=== PATIENT | male | born 1930 | race Caucasian/White ===

== ENCOUNTER 2017-08-19 18:06 | Emergency (ER) | payer MEDICARE, BC ==
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
[2017-08-19 18:58] LABS: Appearance,Urine Clear (Clear); Bilirubin,Urine Negative (Negative); Blood,Urine Negative (Negative); Color,Urine Yellow; Glucose,Urine (UA) Negative (Negative); Ketones,Urine Negative (Negative); Leukocyte Esterase,Urine Negative (Negative); Nitrite,Urine Negative (Negative); PH, Urine 6.5 (5.0-8.0); Protein,Urine Negative (Negative); Specific Gravity,Urine 1.015 (1.001-1.035); Urobilinogen,Urine <2.0 mg/dL (<2.0)
[2017-08-19 18:59] LABS: Basophils # (A) 0.1 k/uL (0-0.2); Basophils % (A) 1 %; Eosinophils # (A) 0.1 k/uL (0-0.7); Eosinophils % (A) 2 %; HCT 36.8 % (39.0-53.0); HGB 12.1 gm/dL (13.0-17.5); Lymphocytes # (A) 1.1 k/uL (1.0-4.8); Lymphocytes % (A) 20 %; MCH 30.6 pg (25.0-35.0); MCHC 32.9 g/dL (31.0-37.0); MCV 93.1 fL (80.0-100.0); Mean Platelet Volume 8.3; Monocytes # (A) 1.5 k/uL (0-1.0); Monocytes % (A) 27 %; Neutrophils # (A) 2.7 k/uL (1.3-7.7); Neutrophils % (A) 48 %; Platelet Count 139 k/uL (150-450); RBC 3.96 m/uL (4.30-5.90); RDW 14.3 % (11.5-15.5); WBC 5.5 k/uL (3.8-10.6)
[2017-08-19 19:11] LABS: Albumin 3.5 g/dL (3.5-5.0); Calcium 8.8 mg/dL (8.4-10.2); Potassium 4.6 mmol/L (3.5-5.1); Total Bilirubin 0.6 mg/dL (0.2-1.3); Total Protein 6.2 g/dL (6.3-8.2)
--- NOTE | 2017-08-19 19:27 | XR ---
EXAMINATION TYPE: XR chest 2V DATE OF EXAM: 08/19/2017 COMPARISON: NONE HISTORY: Cough TECHNIQUE: Frontal and lateral views of the chest are obtained. FINDINGS: There is coarsening of interstitial markings. There is no heart failure. Thoracic aorta is atheromatous. I see no gross heart failure. There is no sign of pleural effusion. Bony thorax is int act. IMPRESSION: Pulmonary fibrotic changes. Atheromatous aorta. No pulmonary consolidation.
[2017-08-19] MEDS ORDERED: SODIUM CHLORIDE 0.9% 500 ML IV ONE (19:40)
[2017-08-19] MEDS ORDERED: ALPRAZolam 0.25 MG TAB PO STA (21:29)
[2017-08-20 23:11] VITALS: BP 142/80; PULSE 79; RESP 20; TEMP 98.2
== END 2017-08-19 22:20 | disposition home or self-care (01) ==
LOC: EC 18:06
DX: E86.0 Dehydration (principal); F03.90 Unspecified dementia, unspecified severity, without behavioral disturbance, psychotic disturbance, mood disturbance, and anxiety; I10 Essential (primary) hypertension; R00.1 Bradycardia, unspecified; Z79.82 Long term (current) use of aspirin; Z79.899 Other long term (current) drug therapy
CPT/HCPCS: 36415; 71046; 80053; 81003; 85025; 93005; 96360; 96361; 99285

== ENCOUNTER 2017-09-22 10:32 | Emergency (ER) | payer MEDICARE, BC ==
[2017-09-22] MEDS ORDERED: SODIUM CHLORIDE 0.9% 500 ML IV STA (10:42)
[2017-09-22] MEDS ORDERED: SODIUM CHLORIDE 0.9% 1,000 ML IV STA (10:42)
--- NOTE | 2017-09-22 10:44 | ED ---
General Adult HPI - General Chief complaint: Fall Stated complaint: weakness Time Seen by Provider: 09/22/17 10:32 Source: family, EMS, RN notes reviewed Mode of arrival: EMS Limitations: altered mental status - History of Present Illness Initial comments: This is a 78-year-old male with a history of dementia and a recent urinary tract infection for which she is just finishing his antibiotics who is brought in today because of generalized weakness which is gotten worse since yesterday he apparently fell twice today was able get himself up but was unable to get off the toilet was able later to get himself up he is a poor historian he has no known trauma no recent fevers chills nausea vomiting sweats or other symptoms. His is present to provide information - Related Data Home Medications Medication Instructions Recorded Confirmed ALPRAZolam [Xanax] 0.25 mg PO Q8H PRN 08/19/17 09/22/17 Aspirin EC [Ecotrin Low Dose] 81 mg PO DAILY 08/19/17 09/22/17 Atenolol 100 mg PO DAILY 08/19/17 09/22/17 Donepezil [Aricept] 10 mg PO HS 08/19/17 09/22/17 Memantine [Namenda] 10 mg PO HS 08/19/17 09/22/17 Pravastatin Sodium [Pravachol] 40 mg PO DAILY 08/19/17 09/22/17 Tamsulosin [Flomax] 0.4 mg PO DAILY 08/19/17 09/22/17 Allergies Allergy/AdvReac Type Severity Reaction Status Date / Time haloperidol [From Haldol] AdvReac VIOLENT Verified 09/22/17 11:27 quetiapine [From Seroquel] AdvReac VIOLENT Verified 09/22/17 11:27 Review of Systems ROS Statement: Those systems with pertinent positive or pertinent negative responses have been documented in the HPI. ROS Other: All systems not noted in ROS Statement are negative. Past Medical History Past Medical History: Dementia, Hypertension History of Any Multi-Drug Resistant Organisms: None Reported Past Surgical History: No Surgical Hx Reported Past Psychological History: Unable to Obtain Smoking Status: Former smoker Past Alcohol Use History: Unable to Obtain Past Drug Use History: Unable to Obtain General Exam - General Exam Comments Initial Comments: This a well-developed well-nourished awake alert oriented to self male Limitations: altered mental status General appearance: alert, in no apparent distress Head exam: Present: atraumatic, normocephalic, normal inspection Eye exam: Present: normal appearance, PERRL, EOMI. Absent: scleral icterus, conjunctival injection, periorbital swelling ENT exam: Present: mucous membranes dry Neck exam: Present: normal inspection. Absent: tenderness, meningismus, lymphadenopathy Respiratory exam: Present: normal lung sounds bilaterally. Absent: respiratory distress, wheezes, rales, rhonchi, stridor Cardiovascular Exam: Present: regular rate, normal rhythm, normal heart sounds. Absent: systolic murmur, diastolic murmur, rubs, gallop, clicks GI/Abdominal exam: Present: soft, normal bowel sounds. Absent: distended, tenderness, guarding, rebound, rigid Extremities exam: Present: normal inspection, full ROM, normal capillary refill. Absent: tenderness, pedal edema, joint swelling, calf tenderness Back exam: Present: normal inspection Neurological exam: Present: alert, altered, CN II-XII intact Psychiatric exam: Present: normal affect, normal mood Skin exam: Present: warm, dry, intact, normal color. Absent: rash Course Vital Signs 09/22/17 09/22/17 10:38 12:03 Temperature 96.8 F L Pulse Rate 76 82 Respiratory 18 16 Rate Blood Pressure 141/79 134/89 O2 Sat by Pulse 97 Oximetry Medical Decision Making - Medical Decision Making I did discuss findings with patient and family the patient is able ably without difficulty after IV hydration she will be discharged - Lab Data Result diagrams: 09/22/17 11:10 09/22/17 11:10 Lab Results 09/22/17 09/22/17 09/22/17 Range/Units 11:10 11:10 11:10 WBC 5.1 (3.8-10.6) k/uL RBC 4.35 (4.30-5.90) m/uL Hgb 13.7 (13.0-17.5) gm/dL Hct 42.0 (39.0-53.0) % MCV 96.5 (80.0-100.0) fL MCH 31.4 (25.0-35.0) pg MCHC 32.5 (31.0-37.0) g/dL RDW 14.0 (11.5-15.5) % Plt Count 136 L (150-450) k/uL Neutrophils % (Manual) 53 % Lymphocytes % (Manual) 19 % Monocytes % (Manual) 28 % Neutrophils # (Manual) 2.70 (1.3-7.7) k/uL Lymphocytes # (Manual) 0.97 L (1.0-4.8) k/uL Monocytes # (Manual) 1.43 H (0-1.0) k/uL Nucleated RBCs 0 (0-0) /100 WBC Manual Slide Review Performed RBC Morphology Normal Sodium 141 (137-145) mmol/L Potassium 4.4 (3.5-5.1) mmol/L Chloride 107 (98-107) mmol/L Carbon Dioxide 22 (22-30) mmol/L Anion Gap 12 mmol/L BUN 28 H (9-20) mg/dL Creatinine 1.57 H (0.66-1.25) mg/dL Est GFR (MDRD) Af Amer 51 (>60 ml/min/1.73 sqM) Est GFR (MDRD) Non-Af 42 (>60 ml/min/1.73 sqM) Glucose 104 H (74-99) mg/dL Calcium 9.3 (8.4-10.2) mg/dL Magnesium 2.1 (1.6-2.3) mg/dL Total Bilirubin 1.2 (0.2-1.3) mg/dL AST 17 (17-59) U/L ALT 19 L (21-72) U/L Alkaline Phosphatase 86 (38-126) U/L Total Creatine Kinase 52 L (55-170) U/L CK-MB (CK-2) 1.4 (0.0-2.4) ng/mL CK-MB (CK-2) Rel Index 2.7 Total Protein 6.6 (6.3-8.2) g/dL Albumin 3.8 (3.5-5.0) g/dL Amylase 42 (30-110) U/L Lipase 211 (23-300) U/L Urine Color Urine Appearance (Clear) Urine pH (5.0-8.0) Ur Specific [place] (1.001-1.035) Urine Protein (Negative) Urine Glucose (UA) (Negative) Urine Ketones (Negative) Urine Blood (Negative) Urine Nitrite (Negative) Urine Bilirubin (Negative) Urine Urobilinogen (<2.0) mg/dL Ur Leukocyte Esterase (Negative) Urine RBC (0-5) /hpf Urine WBC (0-5) /hpf Ur Squamous Epith Cells (0-4) /hpf Hyaline Casts (0-2) /lpf Urine Mucus (None) /hpf 09/22/17 Range/Units 11:55 WBC (3.8-10.6) k/uL RBC (4.30-5.90) m/uL Hgb (13.0-17.5) gm/dL Hct (39.0-53.0) % MCV (80.0-100.0) fL MCH (25.0-35.0) pg MCHC (31.0-37.0) g/dL RDW (11.5-15.5) % Plt Count (150-450) k/uL Neutrophils % (Manual) % Lymphocytes % (Manual) % Monocytes % (Manual) % Neutrophils # (Manual) (1.3-7.7) k/uL Lymphocytes # (Manual) (1.0-4.8) k/uL Monocytes # (Manual) (0-1.0) k/uL Nucleated RBCs (0-0) /100 WBC Manual Slide Review RBC Morphology Sodium (137-145) mmol/L Potassium (3.5-5.1) mmol/L Chloride (98-107) mmol/L Carbon Dioxide (22-30) mmol/L Anion Gap mmol/L BUN (9-20) mg/dL Creatinine (0.66-1.25) mg/dL Est GFR (MDRD) Af Amer (>60 ml/min/1.73 sqM) Est GFR (MDRD) Non-Af (>60 ml/min/1.73 sqM) Glucose (74-99) mg/dL Calcium (8.4-10.2) mg/dL Magnesium (1.6-2.3) mg/dL Total Bilirubin (0.2-1.3) mg/dL AST (17-59) U/L ALT (21-72) U/L Alkaline Phosphatase (38-126) U/L Total Creatine Kinase (55-170) U/L CK-MB (CK-2) (0.0-2.4) ng/mL CK-MB (CK-2) Rel Index Total Protein (6.3-8.2) g/dL Albumin (3.5-5.0) g/dL Amylase (30-110) U/L Lipase (23-300) U/L Urine Color Yellow Urine Appearance Clear (Clear) Urine pH 5.0 (5.0-8.0) Ur Specific [place] 1.020 (1.001-1.035) Urine Protein Trace H (Negative) Urine Glucose (UA) Negative (Negative) Urine Ketones Trace H (Negative) Urine Blood Negative (Negative) Urine Nitrite Negative (Negative) Urine Bilirubin Negative (Negative) Urine Urobilinogen <2.0 (<2.0) mg/dL Ur Leukocyte Esterase Moderate H (Negative) Urine RBC 2 (0-5) /hpf Urine WBC 4 (0-5) /hpf Ur Squamous Epith Cells <1 (0-4) /hpf Hyaline Casts 1 (0-2) /lpf Urine Mucus Rare H (None) /hpf - Radiology Data Radiology results: report reviewed (I did review the imaging no acute findings) , image reviewed Disposition Clinical Impression: Fall, Dehydration Disposition: HOME SELF-CARE Condition: Good Instructions: Fall Prevention for Older Adults (ED), Dehydration (ED) Referrals: Olive Diaz MD [Primary Care Provider] - 1-2 days
--- NOTE | 2017-09-22 11:13 | XR ---
EXAMINATION TYPE: XR chest 2V DATE OF EXAM: 09/22/2017 COMPARISON: Chest x-ray August 19, 2017 HISTORY: Cough. TECHNIQUE: Frontal and lateral views of the chest are obtained. FINDINGS: There is chronic emphysematous change with new retrocardiac opacity seen best on lateral v iew. No large pleural effusion or pneumothorax is seen. The cardiac silhouette size remains enlarged with atherosclerotic and ectatic aorta. The osseous structures are demineralized. IMPRESSION: Chronic emphysematous change and cardiomegaly with suspected new left lower lobe infiltr ate.
[2017-09-22 11:39] LABS: Albumin 3.8 g/dL (3.5-5.0); Calcium 9.3 mg/dL (8.4-10.2); Magnesium 2.1 mg/dL (1.6-2.3); Potassium 4.4 mmol/L (3.5-5.1); Total Bilirubin 1.2 mg/dL (0.2-1.3); Total Protein 6.6 g/dL (6.3-8.2)
[2017-09-22 11:50] LABS: HGB 13.7 gm/dL (13.0-17.5); MCH 31.4 pg (25.0-35.0); MCHC 32.5 g/dL (31.0-37.0); MCV 96.5 fL (80.0-100.0); Mean Platelet Volume 8.9; Platelet Count 136 k/uL (150-450); RBC 4.35 m/uL (4.30-5.90); WBC 5.1 k/uL (3.8-10.6)
[2017-09-22 12:04] VITALS: RESP 16
[2017-09-22 12:09] LABS: Lymphocytes # (M) 0.97 k/uL (1.0-4.8); Monocytes # (M) 1.43 k/uL (0-1.0); Neutrophils % (M) 53 %; Nucleated Red Blood Cells 0 /100 WBC (0-0); Total Cells Counted 100
[2017-09-22 12:13] LABS: Appearance,Urine Clear (Clear); Bilirubin,Urine Negative (Negative); Blood,Urine Negative (Negative); Color,Urine Yellow; Glucose,Urine (UA) Negative (Negative); Hyaline Casts,Urine 1 /lpf (0-2); Ketones,Urine Trace (Negative); Leukocyte Esterase,Urine Moderate (Negative); Mucus,Urine Rare /hpf; Nitrite,Urine Negative (Negative); Protein,Urine Trace (Negative); RBC,Urine 2 /hpf (0-5); Squamous Epithelial Cell,Urine <1 /hpf (0-4); Urobilinogen,Urine <2.0 mg/dL (<2.0); WBC,Urine 4 /hpf (0-5)
[2017-09-22 12:15] LABS: Creatine Kinase MB 1.4 ng/mL (0.0-2.4)
[2017-09-22 13:56] VITALS: BP 140/101; PULSE 85; TEMP 96.9
== END 2017-09-22 13:55 | disposition home or self-care (01) ==
LOC: EC 10:32
DX: E86.0 Dehydration (principal); F03.90 Unspecified dementia, unspecified severity, without behavioral disturbance, psychotic disturbance, mood disturbance, and anxiety; I10 Essential (primary) hypertension; Z87.891 Personal history of nicotine dependence; Z79.82 Long term (current) use of aspirin; Z79.899 Other long term (current) drug therapy; Z88.8 Allergy status to other drugs, medicaments and biological substances; W18.11XA Fall from or off toilet without subsequent striking against object, initial encounter
CPT/HCPCS: 36415; 71046; 80053; 81001; 82150; 82550; 82553; 83690; 83735; 85025; 93005; 99284